=== PATIENT | male | born 1950 | race Caucasian/White ===

== ENCOUNTER 2024-02-01 09:34 | Outpatient (CLI) | payer MEDICARE, OTHER ==
[~2024-02-01 09:34] MED LIST: Iopamidol 370 76% 100 ML VIAL ONE
== END 2024-02-01 09:35 | disposition home or self-care (01) ==
LOC: CSHCT 09:34
PROVIDERS: ATTEND Urology
DX: N28.1 Cyst of kidney, acquired (principal); K59.00 Constipation, unspecified; K57.30 Diverticulosis of large intestine without perforation or abscess without bleeding
CPT/HCPCS: 36415; 74178; 82565